=== PATIENT | male | born 1960 ===

== ENCOUNTER 2017-03-21 00:30 | Inpatient (IN) | payer MEDICAID ==
--- NOTE | 2017-03-21 01:16 | C.PDOC ---
History Of Present Illness Patient presents to the ER with a complaint of feeling depressed and is requesting to been evaluated by psych services. Denies suicidal ideation or homicidal ideation. Time Seen by Provider: 03/21/17 01:15 Chief Complaint (Nursing): Psychiatric Evaluation History Per: Patient History/Exam Limitations: no limitations Onset/Duration Of Symptoms: Days Current Symptoms Are (Timing): Still Present Suicide/Self Injury Attempted (Context): None Modifying Factor(s): None Severity: None Pain Scale Rating Of: 0 Associated Symptoms: Depression. denies: Suicidal Thoughts, Other (Homicidal ideation) Involuntary Hold By: None Recent travel outside of the [place]: No Past Medical History Reviewed: Historical Data, Nursing Documentation, Vital Signs Vital Signs: Last Vital Signs Temp 98.0 F 03/21/17 04:50 Pulse 75 03/21/17 04:50 Resp 18 03/21/17 04:50 BP 103/67 03/21/17 04:50 Pulse Ox 98 03/21/17 04:50 - Medical History PMH: Gastrointestinal Ulcer Family History: States: No Known Family Hx - Social History Hx Alcohol Use: Yes Hx Substance Use: Yes - Immunization History Hx Influenza Vaccination: Yes Hx Pneumococcal Vaccination: Yes Review Of Systems Constitutional: Negative for: Fever, Chills Gastrointestinal: Negative for: Nausea, Vomiting, Diarrhea Psych: Positive for: Depression. Negative for: Suicidal ideation, Other ( Homicidal ideation) Physical Exam - Physical Exam Appears: Non-toxic Skin: Warm, Dry Head: Normacephalic Oral Mucosa: Moist Chest: Symmetrical, No Tenderness Cardiovascular: Rhythm Regular Respiratory: No Rales, No Rhonchi, No Wheezing Gastrointestinal/Abdominal: Soft, No Tenderness Neurological/Psych: Oriented x3 ED Course And Treatment - Laboratory Results Result Diagrams: 03/21/17 01:33 03/21/17 01:33 O2 Sat by Pulse Oximetry: 98 (Room air) Pulse Ox Interpretation: Normal Progress Note: Blood work and urinalysis ordered. Crisis notified. Disposition Discussed With : Giovanna Jama Comment: accepted the pt onhis service and took over the care at 5:40AM Doctor Will See Patient In The: Hospital Counseled Patient/Family Regarding: Studies Performed, Diagnosis - Disposition Disposition: HOSPITALIZED Disposition Time: 01:15 Condition: FAIR Forms: [facility] (Liberian) - POA Present On Arrival: None - Clinical Impression Clinical Impression: Major depression, Polysubstance abuse - Scribe Statement The provider has reviewed the documentation as recorded by the Scribe Livan Barnes All medical record entries made by the Scribe were at my direction and personally dictated by me. I have reviewed the chart and agree that the record accurately reflects my personal performance of the history, physical exam, medical decision making, and the department course for this patient. I have also personally directed, reviewed, and agree with the discharge instructions and disposition. Decision To Admit - Pt Status Changed To: Hospital Disposition Of: Inpatient - Admit Certification Admit to Inpatient:: After my assessment, the patient will require hospitalization for at least two midnights. This is because of the severity of symptoms shown, intensity of services needed, and/or the medical risk in this patient being treated as an outpatient. - InPatient: Physician Admission Certification: I certify that this patient requires 2 or more midnights of care for the following reason:: After my assessment, the patient will require hospitalization for at least two midnights. This is because of the severity of symptoms shown, intensity of services needed, and/or the medical risk in this patient being treated as an outpatient. - . Bed Request Type: Psychiatry Admitting Physician: Giovanna Jama Patient Diagnosis: Major depression, Polysubstance abuse
[2017-03-21 01:35] LABS: BASO # 0.1 K/uL (0.0-0.2); BASO % 0.9 % (0.0-2.0); EOS # 0.3 K/uL (0.0-0.7); EOS % 4.6 % (0.0-4.0); HEMOGLOBIN 14.2 g/dL (12.0-18.0); LYMPH # 2.7 K/uL (1.0-4.3); LYMPH % 40.5 % (20.0-40.0); MEAN CELL VOLUME 94.3 fL (80.0-94.0); MEAN CORPUSCULAR HEMOGLOBIN 32.4 pg (27.0-31.0); MEAN CORPUSCULAR HGB CONC 34.4 g/dL (33.0-37.0); MEAN PLATELET VOLUME 7.8 fL (7.2-11.7); MONO # 0.6 K/uL (0.0-0.8); MONO % 9.4 % (0.0-10.0); NEUT % 44.6 % (50.0-75.0); NRBC % 0.1 % (0.0-2.0); RBC 4.37 Mil/uL (4.40-5.90); RED CELL DISTRIBUTION WIDTH 12.9 % (11.5-14.5); WHITE BLOOD COUNT 6.6 K/uL (4.8-10.8)
[2017-03-21 01:48] LABS: ALB/GLOB RATIO 1.2 (1.0-2.1); ALT/SGPT 24 U/L (21-72); AST/SGOT 34 U/L (17-59); BLOOD UREA NITROGEN 10 mg/dL (9-20); CALCIUM 8.1 mg/dl (8.6-10.4); GFR AFRICAN-AMERICAN > 60; GFR NON-AFRICAN AMERICAN > 60
[2017-03-21 03:34] LABS: URINE BILIRUBIN NEGATIVE (NEGATIVE); URINE BLOOD NEGATIVE (NEGATIVE); URINE CLARITY Clear (Clear); URINE COLOR Yellow (YELLOW); URINE GLUCOSE (UA) NORMAL (Normal); URINE LEUKOCYTE ESTERASE NEG Leu/uL (Negative); URINE NITRATE NEGATIVE (NEGATIVE); URINE PROTEIN NEGATIVE (NEGATIVE); URINE UROBILINOGEN NORMAL mg/dL (0.2-1.0)
[2017-03-21 03:48] LABS: BARBITURATES, UR NEGATIVE (NEGATIVE); BENZODIAZEPINES, UR NEGATIVE (NEGATIVE); OPIATES, UR NEGATIVE (NEGATIVE); PHENCYCLIDINE, UR NEGATIVE (NEGATIVE)
--- NOTE | 2017-03-21 06:08 | PCM.BM ---
<Iris Dupont - Last Filed: 03/21/17 06:07> Treatment Plan Problems - Problems identified on initial assessmt Depression Date Initiated: 03/21/17 Time Initiated: 06:10 Assessment reference: NA Status: Active Substance Abuse Date Initiated: 03/21/17 Time Initiated: 06:10 Assessment reference: NA Status: Active Treatment assets and liabiliti Patient Assests: cooperative, ADL independent, negotiates basic needs Patient Liabilities: financial problems, poor support system, substance abuse - Milieu Protocol Maintain good personal hygiene: daily Encourage regular showers, daily Remind patient to perform daily oral care, daily Assist patient to perform ADL's Conduct patient checks and document Observation sheet: Q15 minutes Maintain personal safety: every shift Educate patient to report safety concerns to staff, every shift Monitor environment for contraband/sharps Medication safety: Monitor for expected outcome, potential side effects: every shift, Assess barriers to learning: every shift, Assess readiness for medication education: every shift <Wilfredo Jo - Last Filed: 03/22/17 11:19> - Diagnosis (1) Major depression Status: Acute Interventions: 03/22/17 11:20 * Assess/adjust medications daily and /or as needed * See patient on an individual basis 7x/week to assess symptoms of depression * Monitor for side effects & effectiveness of medications * (2) Polysubstance abuse Status: Acute Interventions: 03/22/17 11:21 * Assess 7x/week regarding severity of withdrawal * Educate regarding risks, benefits, side effects and alternatives of medications * Use Motivational Interviewing for abstinence * Use CBT for relapse prevention * Medication management for withdrawal symptoms * Encourage medication assisted treatment * <Nirmala Warren - Last Filed: 03/22/17 11:28> Family Contact Family involvement: Famliy/SO not involved - Goals for Treatment Patient goals for treatment: "I want to go back to my outpatient program at [facility]." Discharge/Continuing Care - Education Needs Education Needs: Patient Medication, Patient Coping Skills, Patient Placement options, Patient Community resources - Discharge Discharge Criteria: Tolerates medication w/o severe side effects, No longer exhibiting s/s of withdrawal, Reduction of target symptoms Discharge to:: Home - Treatment Team Participation Discussed with Family/SO: No Was Patient/Family/SO present at Treatment Team Meeting: Yes
--- NOTE | 2017-03-21 10:06 | PCM.PSYCH ---
Initial Psychiatric Evaluation - Initial Psychiatric Evaluation Type of Admission: Voluntary Legal Status: Capacity Chief Complaint (in patient's own words): I was depressed and suicidal.' History of Present Illness and Precipitating Events: Patient is a 57 yo HM, who is currently homeless, came to ED with depressed mood , and suicide ideation. As per the ED notes, ''patient reported the following: "Very depressed;" I feel like dying;" I think I'm going to ;" I keep hearing voices;" I want to kill myself;" I took a bus to the [place] (03/20[place]17), but the police stopped me;" I wanted to jump in front of a train ([place] [address] 03/20/17 ), but a friend stopped me." Pt was recently discharged from [facility] on Feb 152016, secondary to similar symptoms of suicidal idx, feelings of depression/ hopelessness, and polysubstance dependence. Pt was discharged from [facility] with appointments to [facility] and [facility]. Pt, however, did not follow through with aftercare plans, stating he felt "alright" at the time, and discontinued his med regime one week ago. At some point, Pt relapsed back on to a daily dependence of ETOH/cocaine ("sniff"); Over the past several days, Pt has experienced "voices" telling him: "I'm no good;" That life's not worth living;" And to is better"; Pt also reported experiencing command "voices" to kill himself as of yesterday; Pt has an extensive hx of suicide attempts: Age 19 Pt lacerated both forearms with a razor "20 something times" (no old wounds were noted), 2009 Pt jumped from a "2story window" resulting in Pt "hurting" his back , 2004 Pt od on pills, and he has one prior attempt at "drinking" (ETOH) himself to (Pt stated he was consequently "unconscious" for "a couple of days"); Pt endorses active but vague thoughts of suicide, but denied any current suicide plan; Pt identified recent holidays as the nurse ob to the above symptoms; Above symptoms have been on-going for the "past week"; Pt is currently homeless; Pt had been living with a "friend", but was thrown out by same "10days ago"; Pt slept at the [facility] last night. He remained depressed, hopeless and helpless. He remained isolated and withdrawn in the unit. He reports of hearing negative voices. He reports withdrawal symptoms, including shakes, nausea, headaches and sweating. PMH Hep C, HTN, CAD Current Medications: Active Medications Generic Name Dose Route Start Last Admin Trade Name Freq PRN Reason Stop Dose Admin Aripiprazole 5 mg 03/21/17 22:00 Abilify PO HS ROCIO Aspirin 81 mg 03/21/17 10:00 Aspirin Chewable PO DAILY ROCIO Clopidogrel Bisulfate 75 mg 03/21/17 10:00 Plavix PO DAILY ROCIO Escitalopram Oxalate 10 mg 03/21/17 10:00 Lexapro PO DAILY ROCIO Gabapentin 300 mg 03/21/17 10:00 Neurontin PO BID ROCIO Hydroxyzine HCl 50 mg 03/21/17 08:52 Atarax PO Q6H PRN Anxiety Trazodone HCl 100 mg 03/21/17 08:52 Desyrel PO HS PRN Insomnia Past Psychiatric History - Past Psychiatric History Previous Treatment History: Inpatient Pertinent Medical Hx (Current Medical&Sleep Prob, Allergies): Allergies Allergy/AdvReac Type Severity Reaction Status Date / Time No Known Allergies Allergy Verified 03/21/17 01:04 Aripiprazole [Abilify] 20 mg PO BID 03/21/17 Clopidogrel [Plavix] 75 mg PO DAILY 03/21/17 Paroxetine HCl [Paxil] 20 mg PO BID 03/21/17 traZODone [trazodone Hydrochloride] 200 mg PO DAILY 03/21/17 Review of Systems - Review of Systems All systems: reviewed and no additional remarkable complaints except - Psychiatric Psychiatric: Anxiety, Irritability, Suicidal Ideation Mental Status Examination - Personal Presentation Personal Presentation: Looks stated age - Affect Affect: Constricted, Depressed - Motor Activity Motor Activity: Calm - Reliability in Providing Information Reliability in Providing Information: Poor, due to alteration in thoughts - Speech Speech: Disorganized - Mood Mood: Depressed, Anxious - Formal Thought Process Formal Thought Process: No Impairment, Hallucinations, Delusions, Paranoia - Hallucinations/Delusions Hallucinations: Visual, Auditory Delusions: Persecution - Obsessions/Compulsions Obsessions: No Compulsions: No - Cognitive Functions Orientation: Person, Place, Situation, Time Sensorium: Alert Attention/Concentration: Attentive Abstract Thinking: [place] Estimate of Intelligence: Below average Judgement: Imparied, as evidence by: Poor judgement, Imparied, as evidence by: Lack of insight into illness - Risk Risk: Suicidal, Withdrawal, Diminished functioning - Strength & Assets Inventory Strength & Assets Inventory: Intelligence - Limitations Limitations: Living alone DSM 5 DX - DSM 5 DSM 5 Diagnosis: Bipolar disorder mixed severe with psychotic features r/o Schizoaffetcive disorder bipolar type Alcohol use disorder severe Alcohol withdrawal Cocaine use severe - Recommended/Plan of Treatment Treatment Recommendations and Plan of Treatment: Bipolar disorder mixed severe with psychotic features r/o Schizoaffetcive disorder bipolar type CBT Psychoeducation Supportive therapy, group therapy, individual therapy Lexapro 5 mg PO Daily Abilify 5 m g PO QHS Neurontin 300 mg by mouth 2 times a day Trazodone 100 mg by mouth daily at bedtime Alcohol use disorder severe CBT Psychoeducation Supportive therapy, individual therapy Use [place] for abstinence Alcohol withdrawal CBT Psychoeducation Supportive therapy, individual therapy Librium taper Librium PRN Cocaine use disorder severe Monitor signs and symptoms Use NV for abstinence - Smoking Cessation Smoking Cessation Initiated: No
[2017-03-21] MEDS: Multiple Vitamins Tab PO SCH (16:44)
[2017-03-22] MEDS: Multiple Vitamins Tab PO SCH (09:52)
--- NOTE | 2017-03-22 11:21 | PCM.PYCHPN ---
Psychiatric Progress Note - Psychiatric Progress Note Patient seen today, length of contact: 15 min Patient Chief Complaint: I was depressed and suicidal.' Problems Identified/Issues Discussed: Patient seen and evaluated, chart reviewed and discussed with the nurse. Patient remained disorganized and remained isolated, confined and withdrawn. He still reports of hearing voices. Patient still appears paranoid and delusional. He reports depressed mood and feelings of hopelessness and helplessness. He reports withdrawal symptoms including cramps, sweating, headaches and anxiety. He is taking medication and denies any side effects. Supportive therapy and psychoeducation were given. Medication Change: Yes (Librium taper) Medical Record Reviewed: Yes Mental Status Examination - Cognitive Function Orientation: Person, Place, Situation, Time Memory: Intact Attention: WNL Concentration: Poor Association: Loose Fund of Knowledge: Poor - Mood Mood: Depressed, Anxious - Affect Affect: Constricted, Depressed - Speech Speech: Soft - Formal Thought Process Formal Thought Process: Delusions, Paranoia, Loosening of associations - Suicidal Ideation Suicidal Ideation: No - Homicidal Ideation Homicidal Ideation: No Goal/Treatment Plan - Goal/Treatment Plan Need for Continued Stay: Severe depression anxiety, Severe functional impairment Progress Toward Problem(s) and Goals/Treatment Plan: Bipolar disorder mixed severe with psychotic features r/o Schizoaffetcive disorder bipolar type CBT Psychoeducation Supportive therapy, group therapy, individual therapy Lexapro 5 mg PO Daily Abilify 5 m g PO QHS Neurontin 300 mg by mouth 2 times a day Trazodone 100 mg by mouth daily at bedtime Alcohol use disorder severe CBT Psychoeducation Supportive therapy, individual therapy Use [place] for abstinence Alcohol withdrawal CBT Psychoeducation Supportive therapy, individual therapy Librium taper Librium PRN Cocaine use disorder severe Monitor signs and symptoms Use MA for abstinence - Smoking Cessation Smoking Cessation Initiated: No
[2017-03-23] MEDS: Multiple Vitamins Tab PO SCH (09:39)
--- NOTE | 2017-03-23 21:26 | PCM.PYCHPN ---
Psychiatric Progress Note - Psychiatric Progress Note Patient seen today, length of contact: 15 min Patient Chief Complaint: I was feeling depressed' Problems Identified/Issues Discussed: Patient seen and evaluated, chart reviewed and discussed with the nurse. He reports depressed mood and feelings of hopelessness and helplessness. He reports withdrawal symptoms including sweating, headaches and anxiety. Patient remained disorganized and remained isolated, confined and withdrawn. He still reports of hearing voices. He is taking medications and denies any side effects. He needs more time for stabilization. Supportive therapy and psychoeducation were given. Medication Change: Yes (Increase Abilify, increase Lexapro) Medical Record Reviewed: Yes Mental Status Examination - Cognitive Function Orientation: Person, Place, Situation, Time Memory: Intact Attention: WNL Concentration: Poor Association: Loose Fund of Knowledge: Poor - Mood Mood: Depressed, Anxious - Affect Affect: Constricted, Depressed - Speech Speech: Soft - Formal Thought Process Formal Thought Process: Delusions, Paranoia, Loosening of associations - Suicidal Ideation Suicidal Ideation: No - Homicidal Ideation Homicidal Ideation: No Goal/Treatment Plan - Goal/Treatment Plan Need for Continued Stay: Severe depression anxiety, Severe functional impairment Progress Toward Problem(s) and Goals/Treatment Plan: Bipolar disorder mixed severe with psychotic features r/o Schizoaffetcive disorder bipolar type CBT Psychoeducation Supportive therapy, group therapy, individual therapy Lexapro 20 mg PO Daily Abilify 10 m g PO QHS Neurontin 300 mg by mouth 2 times a day Trazodone 100 mg by mouth daily at bedtime Alcohol use disorder severe CBT Psychoeducation Supportive therapy, individual therapy Use [place] for abstinence Alcohol withdrawal CBT Psychoeducation Supportive therapy, individual therapy Librium taper Librium PRN Cocaine use disorder severe Monitor signs and symptoms Use FL for abstinence - Smoking Cessation Smoking Cessation Initiated: No
[2017-03-24] MEDS: Multiple Vitamins Tab PO SCH (10:35)
--- NOTE | 2017-03-24 23:49 | PCM.PYCHPN ---
Psychiatric Progress Note - Psychiatric Progress Note Patient seen today, length of contact: 15 min Patient Chief Complaint: I m still feeling depressed' Problems Identified/Issues Discussed: Patient seen and evaluated, chart reviewed and discussed with the nurse. As per the staff, pt remained isolated and withdrawn. He still reports depressed mood, anhidonia and paranoia. He reports some improvement in the withdrawal symptoms but still reports sweating, headaches and anxiety. Patient appears more organized than before but he still reports of hearing voices. He is taking medications and denies any side effects. He needs more time for stabilization. Supportive therapy and psychoeducation were given. Medication Change: Yes (Increase Abilify, increase Lexapro) Medical Record Reviewed: Yes Mental Status Examination - Cognitive Function Orientation: Person, Place, Situation, Time Memory: Intact Attention: WNL Concentration: Poor Association: Loose Fund of Knowledge: Poor - Mood Mood: Depressed, Anxious - Affect Affect: Constricted, Depressed - Speech Speech: Soft - Formal Thought Process Formal Thought Process: Delusions, Paranoia, Loosening of associations - Suicidal Ideation Suicidal Ideation: No - Homicidal Ideation Homicidal Ideation: No Goal/Treatment Plan - Goal/Treatment Plan Need for Continued Stay: Severe depression anxiety, Severe functional impairment Progress Toward Problem(s) and Goals/Treatment Plan: Bipolar disorder mixed severe with psychotic features r/o Schizoaffetcive disorder bipolar type CBT Psychoeducation Supportive therapy, group therapy, individual therapy Lexapro 20 mg PO Daily Abilify 10 m g PO QHS Neurontin 300 mg by mouth 2 times a day Trazodone 100 mg by mouth daily at bedtime Alcohol use disorder severe CBT Psychoeducation Supportive therapy, individual therapy Use [place] for abstinence Alcohol withdrawal CBT Psychoeducation Supportive therapy, individual therapy Librium taper Librium PRN Cocaine use disorder severe Monitor signs and symptoms Use [place] for abstinence - Smoking Cessation Smoking Cessation Initiated: No
[2017-03-25] MEDS: Multiple Vitamins Tab PO SCH (10:25)
--- NOTE | 2017-03-25 17:45 | PCM.PYCHPN ---
Psychiatric Progress Note - Psychiatric Progress Note Patient seen today, length of contact: 15 min Medication Change: Yes Medical Record Reviewed: Yes Mental Status Examination - Cognitive Function Orientation: Person, Place, Situation, Time Memory: Intact Attention: WNL Concentration: Poor Association: Loose Fund of Knowledge: Poor - Mood Mood: Depressed, Anxious - Affect Affect: Constricted, Depressed - Speech Speech: Soft - Formal Thought Process Formal Thought Process: Delusions, Paranoia, Loosening of associations - Suicidal Ideation Suicidal Ideation: No - Homicidal Ideation Homicidal Ideation: No Goal/Treatment Plan - Goal/Treatment Plan Need for Continued Stay: Severe depression anxiety, Severe functional impairment
[2017-03-26] MEDS: Multiple Vitamins Tab PO SCH (09:27)
[2017-03-27 06:22] VITALS: BP 114/77; PULSE 63; RESP 20; TEMP 97.5; O2SAT 97
[2017-03-27] MEDS: Multiple Vitamins Tab PO SCH (09:34)
--- NOTE | 2017-03-27 10:58 | PCM.PYCHDC ---
Mental Status Examination - Mental Status Examination Orientation: Person, Place, Situation, Time Memory: Intact Mood: Neutral Affect: Constricted Speech: Soft Attention: WNL Concentration: WNL Association: WNL Fund of Knowledge: WNL Formal Thought Process: No Impairment Description of patient's judgement and insight: good, fair Psychotic Thoughts and Behaviors: good, fair Suicidal Ideation: No Current Homicidal Ideation?: No Discharge Summary - Discharge Note Consultations:: List each consultation separately and include: 1. Reason for request. 2. Findings. 3. Follow-up Summary of Hospital Course include:: 1. Description of specific treatment plan utilized for patients during their course of treatmen. 2. Summarize the time- course for resolution of acute symptoms and/or regressed behaviors. 3. Describe issues identified and worked on during hospitalization. 4. Describe medication utilized. 5. Describe medical problems identified and treated. 6. Reassessment of suicide risk Summary of Hospital Course: Patient is a 57 yo HM, who is currently homeless, came to ED with depressed mood , and suicide ideation. As per the ED notes, ''patient reported the following: "Very depressed;" I feel like dying;" I think I'm going to ;" I keep hearing voices;" I want to kill myself;" I took a bus to [place] (03/[place]17), but the police stopped me;" I wanted to jump in front of a train ([place] [address] 03/20/17 ), but a friend stopped me." Pt was recently discharged from [facility] on Feb 152016, secondary to similar symptoms of suicidal idx, feelings of depression/ hopelessness, and polysubstance dependence. Pt was discharged from [facility] with appointments to [facility] and [facility]. Pt, however, did not follow through with aftercare plans, stating he felt "alright" at the time, and discontinued his med regime one week ago. At some point, Pt relapsed back on to a daily dependence of ETOH/cocaine ("sniff"); Over the past several days, Pt has experienced "voices" telling him: "I'm no good;" That life's not worth living;" And to is better"; Pt also reported experiencing command "voices" to kill himself as of yesterday; Pt has an extensive hx of suicide attempts: Age 19 Pt lacerated both forearms with a razor "20 something times" (no old wounds were noted), 2009 Pt jumped from a "2story window" resulting in Pt "hurting" his back , 2004 Pt od on pills, and he has one prior attempt at "drinking" (ETOH) himself to (Pt stated he was consequently "unconscious" for "a couple of days"); Pt endorses active but vague thoughts of suicide, but denied any current suicide plan; Pt identified recent holidays as the diet attendant to the above symptoms; Above symptoms have been on-going for the "past week"; Pt is currently homeless; Pt had been living with a "friend", but was thrown out by same "10days ago"; Pt slept at the [facility] last night. He remained depressed, hopeless and helpless. He remained isolated and withdrawn in the unit. He reports of hearing negative voices. He reports withdrawal symptoms, including shakes, nausea, headaches and sweating. PMH Hep C, HTN, CAD - Diagnosis (1) Major depression Current Visit: Yes Status: Acute (2) Polysubstance abuse Current Visit: Yes Status: Acute - Final Diagnosis (DSM 5) Condition upon Discharge: FAIR Disposition: HOME/ ROUTINE Follow-up Treatment Plan: Bipolar disorder mixed severe with psychotic features r/o Schizoaffetcive disorder bipolar type CBT Psychoeducation Supportive therapy, group therapy, individual therapy Lexapro 20 mg PO Daily Abilify 10 m g PO QHS Neurontin 300 mg by mouth 2 times a day Trazodone 100 mg by mouth daily at bedtime Alcohol use disorder severe CBT Psychoeducation Supportive therapy, individual therapy Use [place] for abstinence Alcohol withdrawal CBT Psychoeducation Supportive therapy, individual therapy Librium taper Librium PRN Cocaine use disorder severe Monitor signs and symptoms Use ID for abstinence Prescriptions/Medication Reconciliation: ARIPiprazole [Abilify] 10 mg PO HS #30 tab Escitalopram [Lexapro] 20 mg PO DAILY #30 tab Gabapentin [Neurontin] 300 mg PO BID #60 cap traZODone [Desyrel] 100 mg PO HS PRN #30 tab PRN Reason: Insomnia
== END 2017-03-27 12:10 | disposition home or self-care (01) | DRG 750 ==
LOC: C.ER 00:30 → C.5E 05:39
PROVIDERS: ADMIT Psychiatry & Neurology Psychiatry; ATTEND Psychiatry & Neurology Psychiatry
PROC: HZ2ZZZZ Detoxification Services for Substance Abuse Treatment (ICD-10-PCS; principal; 2017-03-21)
PROC: GZ56ZZZ Individual Psychotherapy, Supportive (ICD-10-PCS; 2017-03-21)
DX: F10.230 Alcohol dependence with withdrawal, uncomplicated (principal); F31.64 Bipolar disorder, current episode mixed, severe, with psychotic features; F14.20 Cocaine dependence, uncomplicated; F41.9 Anxiety disorder, unspecified; I10 Essential (primary) hypertension; Z59.0 Homelessness; F10.229 Alcohol dependence with intoxication, unspecified; F12.90 Cannabis use, unspecified, uncomplicated; Y90.4 Blood alcohol level of 80-99 mg/100 ml